=== PATIENT | female | born 1965 | race African-American/Black ===

== ENCOUNTER 2018-01-24 17:30 | Emergency (ER) | payer MEDICARE, MEDICAID ==
[2018-01-24] MEDS ORDERED: Insulin Regular 300 UNITS/3 ML VIAL ONE (18:09)
[2018-01-24 18:26] LABS: INR-International Normal Ratio 1.2; Prothrombin Time 15.1 SEC (12.0-14.7)
[2018-01-24 18:28] LABS: PTT 22.3 SEC (22.9-36.1)
[2018-01-24 18:32] LABS: ALT (SGPT) 8 U/L (8-55); AST (SGOT) 18 U/L (5-34); Acetaminophen Less than 6.0 mcg/mL (10.0-30.0); Albumin 3.3 g/dL (3.5-5.0); Alcohol Less than 10 mg/dL (Less than 10); Alkaline Phosphatase 93 U/L (40-150); Anion Gap 24 mmol/L (10-20); BUN (Urea Nitrogen) 41 mg/dL (9.8-20.1); Bilirubin, Total 0.3 mg/dL (0.2-1.2); Calc. Creatinine Clearance 0 mL/min (70-130); Carbon Dioxide 25 mmol/L (22-29); Chloride 92 mmol/L (98-107); Estimated GFR-MDRD 6; Globulin 5.2 g/dL (2.4-3.5); Glucose 225 mg/dL (70-105); Potassium 4.2 mmol/L (3.5-5.1); Protein, Total 8.5 g/dL (6.0-8.3); Salicylate Less than 8.0 mg/dL (15.0-30.0); Sodium 137 mmol/L (136-145)
[2018-01-24 18:35] LABS: Troponin I 0.011 ng/mL (< 0.028)
[2018-01-24 18:37] LABS: Calcium 14.1 mg/dL (7.8-10.44); Lactic Acid 10.1 mmol/L (0.5-2.2)
[2018-01-24 19:01] LABS: Anisocytosis SLIGHT = 6-15 cells (100X) (0-5/hpf); Band 1 % (5-11); Hemoglobin 9.6 g/dL (12.0-16.0); Lymphocytes 45 % (21-51); MDiff Complete? YES; Macrocytosis SLIGHT = 6-15 cells (100X) (0-5/hpf); Mean Corpuscular HGB CONC 28.8 g/dL (32.0-36.0); Mean Corpuscular Hemoglobin 29.7 pg (27.0-31.0); Mean Platelet Volume 9.8 fL (7.4-10.4); Monocytes 3 % (0-10); Neutrophil 50 % (42-75); Nucleated RBC 1 % (0); PLT Morphology Comment Appears Adequate; Platelet Count 230 thou/uL (130-400); Polychromasia SLIGHT = 2-3 cells (100X) (0-2/hpf); RBC Distribution Width 16.1 % (11.5-14.5); Reactive Lymphocytes 1 % (0-10); Red Blood Cell (RBC) Count 3.23 mill/uL (4.20-5.40); Target Cells SLIGHT = 2-5 cells (100X) (0-1/hpf)
--- NOTE | 2018-01-24 20:09 | RAD ---
SINGLE VIEW OF THE CHEST: Date: 01-24-18 Comparison: 01-08-18 History: Shortness of breath, chest pain. FINDINGS: Single view of the chest shows an enlarged cardiomediastinal silhouette. There is an endotracheal tub e which extends down the right main stem bronchus and should be withdrawn approximately 4-5 cm. An NG tube can be seen to the lower mediastinum and its tip is likely just within the stomach. The sidepor t is likely in the distal esophagus. There is no evidence of consolidation, mass or pleural effusion. IMPRESSION: Malpositioned endotracheal tube and NG tubes as above. Code T POS: [id number]
== END 2018-01-24 18:15 | disposition expired ==
LOC: ERS 17:30
DX: I46.9 Cardiac arrest, cause unspecified (principal); E11.9 Type 2 diabetes mellitus without complications; J44.9 Chronic obstructive pulmonary disease, unspecified; I10 Essential (primary) hypertension; Z87.891 Personal history of nicotine dependence
CPT/HCPCS: 31500; 36416; 36556; 71045; 80053; 80307; 82553; 83605; 84484; 85025; 85610; 85730; 92950; 93005; 94002; 96374; 96375; 96376; J1815; J7620